=== PATIENT | female | born 2000 | race African-American/Black ===

== ENCOUNTER 2020-06-08 14:01 | Inpatient (IN) ==
[2020-06-08] MEDS ORDERED: MEPERIDINE 50 MG/1 ML VIAL IV PRN (14:22)
[2020-06-08] MEDS ORDERED: ONDANSETRON 4 MG/2 ML VIAL IV PRN (14:22)
[2020-06-08] MEDS ORDERED: DINOPROSTONE VAG GEL 10 MG SYRINGE VAG ONE ×2 (14:24→14:26)
[2020-06-08 14:58] LABS: Basophils % 0.4 % (0.0-0.8); Eosinophils # 0.1 10*3/uL (0.0-0.87); Eosinophils % 0.7 % (0.00-10.9); Hematocrit 29.8 VOL% (35.7-47.0); Hemoglobin 9.7 GM/DL (12.0-16.0); Immature Granulocytes % 3.3 %; Immature Granulocytes Absolute 0.34 #; Lymphocytes # 1.6 10*3/uL (1.4-4.0); Lymphocytes % 15.3 % (21.3-54.2); Mean Corpuscular HGB Conc 32.6 GM/DL (32-36); Mean Corpuscular Volume 95.5 FL (87-102); Mean Platelet Volume 11.2 FL (9.6-12.0); Monocytes % 8.4 % (1.7-12.7); NRBC # 0.07 10*3/uL; Neutrophils % 71.9 % (38.7-73.9); Platelet Count 219 T/CUMM (130-400); Red Blood Count 3.12 MC/CUMM (3.8-5.5); Red Cell Distribution Width 14.5 % (9.3-17.3); White Blood Count 10.4 T/CUMM (4-12)
[2020-06-08 15:10] LABS: Bilirubin,Total 0.7 MG/DL (0.2-1.0); Calcium 8.9 MG/DL (8.5-10.1); Total Protein 7.3 G/DL (6.4-8.3)
[2020-06-08] MEDS: BUTORPHANOL 2 MG/ML VIAL IV PRN (19:37)
[2020-06-08 21:21] LABS: RPR Confirm - Less than 1 yr NONREACTIVE (Nonreactive)
[2020-06-09] MEDS ORDERED: OXYTOCIN/LR 20 UNIT/1,000 ML BAG IV SCH (02:00)
[2020-06-09] MEDS: LACTATED RINGERS 1,000 ML IV SCH ×3 (02:00→11:09)
[2020-06-09] MEDS: BUTORPHANOL 2 MG/ML VIAL IV PRN ×2 (02:16→07:24)
[2020-06-09] MEDS ORDERED: hydrOXYzine HCL 25 MG/1 ML VIAL IM PRN (09:08)
[2020-06-09] MEDS ORDERED: ePHEDrine 50 MG/ML VIAL IV PRN (09:08)
[2020-06-09] MEDS ORDERED: PROMETHAZINE 25 MG/1 ML VIAL IM PRN (09:08)
[2020-06-09] MEDS ORDERED: NALOXONE 0.4 MG/ML VIAL IV PRN (09:08)
[2020-06-09] MEDS ORDERED: diphenhydrAMINE 50 MG/1 ML VIAL IV PRN (09:08)
[2020-06-09] MEDS ORDERED: CITRIC ACID/SODIUM CITRATE 30 ML UDCUP PO ONE (09:08)
[2020-06-09] MEDS ORDERED: FAMOTIDINE 20 MG/2 ML VIAL IV ONE (09:08)
[2020-06-09] MEDS ORDERED: fentaNYL 2 MCG/ROPIV 0.2% EPID 100 ML EPIDURAL SCH (09:30)
[2020-06-09 12:05] LABS: Apearance,Urine CLEAR (Clear); Bacteria,Urine Occasional /HPF (Few); Bilirubin,Urine Negative (Negative); Blood, Urine Negative (Negative); Glucose,Urine (UA) Negative (Negative); Ketones,Urine Negative (Negative); Nitrite,Urine Negative (Negative); Protein,Urine Negative; Squamous Epithelial Cell,Urine Occasional /HPF (0-10); Urine Color Colorless (Yellow); Urine Specific Gravity 1.002 (1.001-1.035); Urine Urobilinogen < 2.0 EU/DL (0.2-1.0); WBC,Urine <1 /HPF (0-6)
[2020-06-09] MEDS ORDERED: miSOPROStoL 200 MCG TABLET ONE (12:05)
[2020-06-09] MEDS ORDERED: TRANEXAMIC ACID 1,000 MG/10 ML VIAL ONE (12:06)
[2020-06-09] MEDS ORDERED: OXYTOCIN/LR 20 UNIT/1,000 ML BAG IV ONE ×3 (12:06→15:46)
[2020-06-09] MEDS ORDERED: CARBOPROST TROMETHAMINE 250 MCG/ML AMP IM ONE (12:06)
[2020-06-09] MEDS ORDERED: METHYLERGONOVINE 0.2 MG/1 ML AMP ONE (12:06)
[2020-06-09] MEDS ORDERED: miSOPROStoL 200 MCG TABLET RECTAL ONE (12:40)
[2020-06-09 13:48] LABS: Basophils % 0.3 % (0.0-0.8); Eosinophils % 0.4 % (0.00-10.9); Hematocrit 25.1 VOL% (35.7-47.0); Hemoglobin 8.3 GM/DL (12.0-16.0); Immature Granulocytes % 2.5 %; Immature Granulocytes Absolute 0.27 #; Lymphocytes # 1.2 10*3/uL (1.4-4.0); Lymphocytes % 10.9 % (21.3-54.2); Mean Corpuscular HGB Conc 33.1 GM/DL (32-36); Mean Corpuscular Volume 94.7 FL (87-102); Mean Platelet Volume 10.8 FL (9.6-12.0); Monocytes % 5.9 % (1.7-12.7); NRBC # 0.02 10*3/uL; Platelet Count 196 T/CUMM (130-400); Red Blood Count 2.65 MC/CUMM (3.8-5.5); Red Cell Distribution Width 14.7 % (9.3-17.3); White Blood Count 10.6 T/CUMM (4-12)
[2020-06-09] MEDS ORDERED: BISACODYL 10 MG SUPP RECTAL PRN (15:46)
[2020-06-09] MEDS ORDERED: DIPH/TET/ACEL PERT BOOSTER VACCINE 0.5 ML VIAL IM ONE (15:46)
[2020-06-09] MEDS ORDERED: MEASLES/MUMPS/RUBELLA VACCINE 0.5 ML VIAL SUBCUT ONE (15:46)
[2020-06-09] MEDS ORDERED: WITCH HAZEL PADS 100/JAR TOP PRN (15:46)
[2020-06-09] MEDS ORDERED: HYDROCORTISONE 2.5% RECTAL CREAM 30 GM TUBE TOP PRN (15:46)
[2020-06-09] MEDS ORDERED: RHO(D) IMMUNE GLOBULIN 300 MCG SYRINGE IM ONE (15:46)
[2020-06-09] MEDS ORDERED: ACETAMINOPHEN 325 MG TABLET PO PRN (15:46)
[2020-06-09] MEDS ORDERED: BENZOCAINE 20%/MENTHOL 0.5% SPRAY 56 GM CAN TOP PRN (15:46)
[2020-06-09] MEDS ORDERED: LANOLIN 50% CREAM 0.3 OZ TUBE TOP PRN (15:46)
[2020-06-09] MEDS: oxyCODONE/ACETAMINOPHEN 5-325 MG TABLET PO PRN ×2 (17:30→23:02)
[2020-06-09] MEDS: IBUPROFEN 800 MG TABLET PO PRN (17:30)
[2020-06-09] MEDS: FERROUS SULFATE 325 MG TABLET PO SCH (20:52)
[2020-06-09] MEDS: DOCUSATE SODIUM 100 MG CAPSULE PO SCH (20:52)
[2020-06-10] MEDS: IBUPROFEN 800 MG TABLET PO PRN ×2 (03:36→13:54)
[2020-06-10] MEDS: oxyCODONE/ACETAMINOPHEN 5-325 MG TABLET PO PRN ×2 (06:14→13:54)
[2020-06-10 07:05] LABS: Basophils % 0.1 % (0.0-0.8); Eosinophils % 0.2 % (0.00-10.9); Hematocrit 19.4 VOL% (35.7-47.0); Hemoglobin 6.5 GM/DL (12.0-16.0); Immature Granulocytes % 1.2 %; Immature Granulocytes Absolute 0.24 #; Lymphocytes # 1.2 10*3/uL (1.4-4.0); Mean Corpuscular HGB Conc 33.5 GM/DL (32-36); Mean Corpuscular Volume 95.1 FL (87-102); Mean Platelet Volume 10.6 FL (9.6-12.0); Monocytes % 5.4 % (1.7-12.7); NRBC # 0.03 10*3/uL; Neutrophils % 87.1 % (38.7-73.9); Platelet Count 162 T/CUMM (130-400); Red Blood Count 2.04 MC/CUMM (3.8-5.5); Red Cell Distribution Width 14.2 % (9.3-17.3); White Blood Count 20.7 T/CUMM (4-12)
[2020-06-10] MEDS ORDERED: SODIUM CHLORIDE 0.9% 1,000 ML IV PRN (07:12)
[2020-06-10 07:29] LABS: Band Neutrophils 22 % (0-10); Eosinophils 1 % (0-10); Lymphocytes 7 % (20-55); Metamyelocytes 1 %; Myelocytes 1 %; Platelet Estimate Normal; Segmented Neutrophils 67 % (50-85); Total Cells Counted 100
[2020-06-10 07:30] LABS: Anisocytosis 2+; Poikilocytosis Slight; Spherocytes Few
[2020-06-10] MEDS: FERROUS SULFATE 325 MG TABLET PO SCH ×2 (08:45→21:19)
[2020-06-10] MEDS: DOCUSATE SODIUM 100 MG CAPSULE PO SCH ×2 (08:45→21:19)
[2020-06-10 16:52] LABS: Hemoglobin 9.8 GM/DL (12.0-16.0)
[2020-06-11] MEDS: DOCUSATE SODIUM 100 MG CAPSULE PO SCH (08:54)
[2020-06-11] MEDS: FERROUS SULFATE 325 MG TABLET PO SCH (08:54)
[2020-06-11] MEDS: IBUPROFEN 800 MG TABLET PO PRN (11:55)
[2020-06-11] MEDS: oxyCODONE/ACETAMINOPHEN 5-325 MG TABLET PO PRN (11:57)
[2020-06-11 12:06] VITALS: BP 100/74
== END 2020-06-11 13:05 | disposition home or self-care (01) | DRG 560 ==
LOC: N.LDOUT 14:01 → N.LD 14:04 → N.OB 06-09 15:22
PROVIDERS: ADMIT Obstetrics & Gynecology; ATTEND Obstetrics & Gynecology